=== PATIENT | male | born 1985 | race Caucasian/White ===

== ENCOUNTER → 2021-02-08 16:34 | Outpatient (CLI) | payer SELFPAY ==
--- NOTE | 2021-02-08 16:42 | CT_ITS ---
STUDY: CT Abdomen And Pelvis W/O Contrast Injection 02/08/2021 5:08 PM REASON FOR EXAM: Male, 35 years old. ABDOMINAL PAIN CALCULUS OF URETER on the left TECHNIQUE: Transaxial images were obtained without oral contrast, and without intravenous contrast. Individualized dose optimization techniques were used for this CT. COMPARISON: None. FINDINGS: The visualized lung bases are unremarkable. The visualized portions of the heart are within normal limits. Normal liver. Normal gallbladder and extrahepatic biliary system. Normal spleen. Normal pancreas. Normal bilateral adrenal glands. No acute findings of the right kidney. Mild left caused by 3.6mm distal left ureteral stone. Normal visualized stomach. Normal small intestine. There are multiple colonic diverticula consistent with diverticulosis. The appendix is visualized and appears normal. There are no acute findings of the abdominal aorta. Normal inferior vena cava. Subcentimeter mesenteric lymph nodes. Normal urinary bladder. There is an umbilical hernia containing fat. Normal osseous structures. IMPRESSION: (NOT LISTED IN ORDER OF SIGNIFICANCE) Mild left caused by 3.6mm distal left ureteral stone. Other findings as above. Electronically Signed: Jesse Bella MD at 17:10 EDT , Service support , CT/Abdomen/Pelvis without Cont
== END ==
PROVIDERS: Referring Provider Nurse Practitioner Adult Health; Visit Provider Nurse Practitioner Adult Health
DX: N20.1 Calculus of ureter (principal)
CPT/HCPCS: 74176